=== PATIENT | female | born 1980 | race Caucasian/White ===

== ENCOUNTER → 2016-07-03 | Outpatient (CLI) | payer OTHER | LOC: KOH-I 11:12 | DX: M54.5 Low back pain (principal) | CPT/HCPCS: 72110 ==

== ENCOUNTER → 2020-02-19 | Outpatient (CLI) | payer OTHER ==
[~2020-02-19] MED LIST: ASPIRIN CHEWABL81 MG PO; BACTRIM 400-801 EACH PO; BACTRIM DS TAB1 EACH PO; HYDROCODON-ACE1 EAC4 PO; NAPROSYN500 MG PO; NORCO 5-325 TA1 EACH PO; NORFLEX 100 MG100 MG PO; PROTONIX40 M1 PO; TYLENOL 500 MG500 MG PO; ULTRAM50 MG PO; Voltaren Gel 1 % TOP
== END ==
LOC: RAD 11:43
DX: S62.616D Displaced fracture of proximal phalanx of right little finger, subsequent encounter for fracture with routine healing (principal); W19.XXXD Unspecified fall, subsequent encounter
CPT/HCPCS: 73130

== ENCOUNTER 2020-04-23 17:54 | Emergency (ER) | payer OTHER ==
[~2020-04-23 17:54] MED LIST changes: -BACTRIM 400-801 EACH PO
[2020-04-23] MEDS ORDERED: BACTRIM 400-801 EACH PO (19:44)
== END 2020-04-23 20:00 | disposition home or self-care (01) ==
LOC: ER1 17:54
DX: N61.1 Abscess of the breast and nipple (principal); F17.210 Nicotine dependence, cigarettes, uncomplicated; Z88.6 Allergy status to analgesic agent; Z88.8 Allergy status to other drugs, medicaments and biological substances; Z90.89 Acquired absence of other organs
CPT/HCPCS: 10060; 87070; 87205; 99283

== ENCOUNTER 2020-06-07 21:21 | Emergency (ER) | payer OTHER ==
[~2020-06-07 21:21] MED LIST changes: +BACTRIM 400-801 EACH PO
[2020-06-07 22:03] LABS: HEMOGLOBIN 13.5 gm/dl (12.3-15.3); RED BLOOD COUNT 4.71 M/UL (4.00-5.10); WHITE BLOOD COUNT 14.4 K/UL (4.5-11.0)
[2020-06-07 22:41] LABS: BUN/CREATININE RATIO 18 (0-10)
== END 2020-06-08 01:02 | disposition home or self-care (01) ==
LOC: ER1 21:21
PROVIDERS: Family Medicine
DX: S46.911A Strain of unspecified muscle, fascia and tendon at shoulder and upper arm level, right arm, initial encounter (principal); S93.401A Sprain of unspecified ligament of right ankle, initial encounter; S16.1XXA Strain of muscle, fascia and tendon at neck level, initial encounter; R51.9 Headache, unspecified; F17.200 Nicotine dependence, unspecified, uncomplicated; Z88.8 Allergy status to other drugs, medicaments and biological substances; Z79.899 Other long term (current) drug therapy; W01.0XXA Fall on same level from slipping, tripping and stumbling without subsequent striking against object, initial encounter; Y92.009 Unspecified place in unspecified non-institutional (private) residence as the place of occurrence of the external cause
CPT/HCPCS: 70450; 72125; 73030; 73590; 73610; 80053; 84703; 85025; 96374; 99284; J1885

== ENCOUNTER 2020-08-28 11:27 | Emergency (ER) | payer OTHER | END 2020-08-28 12:45 | disposition home or self-care (01) | LOC: ER1 11:27 | DX: S60.221A Contusion of right hand, initial encounter (principal); F17.200 Nicotine dependence, unspecified, uncomplicated; Z88.6 Allergy status to analgesic agent; Z88.8 Allergy status to other drugs, medicaments and biological substances; Z90.89 Acquired absence of other organs; W01.0XXA Fall on same level from slipping, tripping and stumbling without subsequent striking against object, initial encounter | CPT/HCPCS: 73130; 99283 ==

== ENCOUNTER 2020-10-01 02:47 | Emergency (ER) | payer OTHER | END 2020-10-01 05:00 | disposition home or self-care (01) | LOC: ER1 02:47 | DX: U07.1 COVID-19 (principal); F17.210 Nicotine dependence, cigarettes, uncomplicated; Z90.49 Acquired absence of other specified parts of digestive tract; Z90.89 Acquired absence of other organs | CPT/HCPCS: 99283; U0002 ==